=== PATIENT | female | born 1950 | race Caucasian/White ===

== ENCOUNTER 2016-07-04 14:51 | Emergency (ER) ==
[2016-07-04 14:59] VITALS: BP 161/88; TEMP 98.9; BMI 32.5
[2016-07-04] MEDS ORDERED: SODIUM CHLORIDE 1,000 ML IV STA (15:39)
[2016-07-04 15:54] LABS: BASOPHILS # (AUTO) 0.1 K/uL (0-0.2); BASOPHILS % (AUTO) 0.6 % (0.0-3.0); EOSINOPHILS # (AUTO) 0.1 K/ul (0.0-0.7); EOSINOPHILS % (AUTO) 0.8 % (0.0-7.0); HEMATOCRIT 44.5 % (37.0-47.0); HEMOGLOBIN 14.7 g/dl (12.0-16.0); IMMATURE GRANULOCYTE % (AUTO) 0.3 % (0.0-5.0); LYMPHOCYTES # (AUTO) 1.4 K/uL (0.60-3.4); LYMPHOCYTES % (AUTO) 13.5 (10.0-50.0); MEAN CORPUSCULAR HEMOGLOBIN 30.1 pg (27.0-31.0); MEAN CORPUSCULAR VOLUME 91.2 fl (81.0-99.0); MONOCYTES # (AUTO) 0.7 K/uL (0.4-2.0); MONOCYTES % (AUTO) 7.1 (0-10); NEUTROPHILS # (AUTO) 7.8 K/ul (2.0-6.9); NEUTROPHILS % (AUTO) 77.7; PLATELET COUNT 256 10^3/uL (140-440); RED BLOOD COUNT 4.88 10^6/ul (4.20-5.40); WHITE BLOOD COUNT 10.01 K/ul (4.6-10.2)
[2016-07-04 16:05] LABS: H. PYLORI ANTIBODY NEGATIVE (NEGATIVE); H.PYLORI INTERNAL QC INTERNAL QC VALID
[2016-07-04 16:09] LABS: BILIRUBIN,URINE Negative (NEGATIVE); KETONES,URINE 2+ (NEGATIVE); LEUKOCYTE ESTERASE ,URINE Negative (NEGATIVE); NITRITE,URINE Negative (NEGATIVE); PH,URINE 8.5 (5-9); PROTEIN,URINE Negative (NEGATIVE); URINE, BLOOD Negative (NEGATIVE)
[2016-07-04 16:12] LABS: ALBUMIN/GLOBULIN RATIO 1.11; ANION GAP 13.3; BILIRUBIN,TOTAL 0.72 mg/dL (0.00-1.20); BUN/CREATININE RATIO 17.24; CALCIUM 9.2 mg/dL (8.2-10.2); CREATININE 0.87 mg/dL (0.60-1.30); POTASSIUM 4.3 mmol/L (3.5-5.10); TOTAL PROTEIN 7.6 g/dL (5.8-8.1)
[2016-07-04 16:14] LABS: ADD URINE MICROSCOPIC NO
--- NOTE | 2016-07-04 16:34 | CT ---
EXAM: CT abdomen pelvis without contra HISTORY: Abdominal pain COMPARISON: None TECHNIQUE: CT abdomen pelvis performed without intravenous contrast. Coronal and sagittal reformat colleen images obtained FINDINGS: Minimal subsegmental atelectasis lung bases. Minimal left basilar patchy ground-glass de pendently. No acute abnormalities of the bones. There is degenerative change in the spine. Bilate ral pars defects L5 with 5 mm anterolisthesis of L5 on S1. Heart normal in size. Evaluation organ parenchyma limited without contrast. Liver diffusely decreased in attenuation. Gallbladder unremar kable. Pancreas unremarkable. Dilation of the common bile duct, poorly evaluated on noncontrast CT . Pancreas unremarkable. Spleen unremarkable. Adrenals unremarkable. No hydronephrosis or nephro lithiasis. No calculi visualized in the normal course of the ureters. Bladder only minimally diste nded and poorly evaluated, grossly unremarkable. Uterus unremarkable. Aorta normal in caliber. At herosclerosis. Ectasia infrarenal aorta measuring up to 2.3 cm. No lymphadenopathy or ascites. Sm all fat-containing umbilical hernia. Moderate hiatal hernia. No dilated loops small bowel. Append ix appears normal. There is colonic diverticulosis. There is inflammatory stranding surrounding di verticula in the sigmoid region. No focal drainable collection. Small fat-containing umbilical luis a ia. IMPRESSION: 1. Acute sigmoid diverticulitis. 2. Dilation of the common bile duct, poorly evaluated on noncontrast CT. Correlation with liver fu nction tests and right upper quadrant ultrasound recommended. MRCP may be beneficial for further ev aluation as subsequently indicated. 3. Moderate hiatal hernia. 4. Hepatic steatosis. 5. Atherosclerosis. Ectasia infrarenal abdominal aorta measuring up to 2.3 cm 6. Minimal left basilar ground-glass opacity may represent atelectasis and/or pneumonitis. 6. Bilateral pars defects L5 with 5 mm anterolisthesis of L5 on S1.
--- NOTE | 2016-07-04 16:44 | ED.PDOC ---
General ED Provider: Dr. CAROLINA HERNÁNDEZ JR Chief Complaint: Abdominal Pain Stated Complaint: pain to lower abd on left side this am--" a kidney stone"-- recent evaluation upper abd pain Time Seen by Physician: 15:30 Mode of Arrival: Walk-In Information Source: Patient Exam Limitations: No limitations Primary Care Provider: RAMONA GUZMAN Nursing and Triage Documentation Reviewed and Agree: No Review of Systems - Review Of Systems Constitutional: Reports: Malaise Eyes: Reports: No symptoms Ears, Nose, Mouth, Throat: Reports: No symptoms Respiratory: Reports: No symptoms Cardiac: Reports: No symptoms GI: Reports: Abdomen distended, Abdominal pain, Nausea : Reports: No symptoms Musculoskeletal: Reports: No symptoms Skin: Reports: No symptoms Neurological: Reports: No symptoms Endocrine: Reports: No symptoms Hematologic/Lymphatic: Reports: No symptoms All Other Systems: Other Past Medical History - Past Medical History Endocrine: Reports: DM 2 Cardiovascular: Reports: Hypertension Respiratory: Reports: None Hematological: Reports: None Gastrointestinal: Reports: None Genitourinary: Reports: None Neuro/Psych: Reports: None Musculoskeletal: Reports: None Cancer: Reports: None Last Menstrual Period: menopause Other Pertinent Past Medical History: seasonal allergies - Surgical History General Surgical History: Reports: Tonsillectomy, Other (breast cyst) - Family History Family History: Reports: Unknown - Social History Smoking Status: Former smoker Hx Substance Use: No Alcohol Screening: None Physical Exam - Physical Exam Appearance: Ill-appearing Ill-appearing: Mild Pain Distress: Mild Eyes: JUAN, EOMI, Conjunctiva clear ENT: Ears normal, Nose normal, Oropharynx normal Neck: Supple Respiratory: Airway patent, Breath sounds clear, Breath sounds equal, Respirations nonlabored GI/: Soft, No masses, Bowel sounds normal, Tender Musculoskeletal: Normal strength, ROM intact, No edema, No calf tenderness Skin: Warm, Dry, Normal color Neurological: Sensation intact, Motor intact, Reflexes intact, Cranial nerves intact, Alert, Oriented Psychiatric: Affect appropriate, Mood appropriate Critical Care Note - Critical Care Note Total Time (mins): 0 Course - Course Hematology/Chemistry: 07/04/16 15:50 07/04/16 15:50 Orders, Labs, Meds: Lab Review 07/04/16 07/04/16 15:25 15:50 WBC 10.01 RBC 4.88 Hgb 14.7 Hct 44.5 MCV 91.2 MCH 30.1 MCHC 33.0 RDW Coeff of Erendira 13.0 Plt Count 256 Immature Gran % (Auto) 0.3 Neut % (Auto) 77.7 Lymph % (Auto) 13.5 Cooper % (Auto) 7.1 Eos % (Auto) 0.8 Baso % (Auto) 0.6 Immature Gran # (Auto) 0.0 Neut # 7.8 H Lymph # 1.4 Cooper # 0.7 Eos # 0.1 Baso # 0.1 Sodium 141 Potassium 4.3 Chloride 106 Carbon Dioxide 26 Anion Gap 13.3 BUN 15 Creatinine 0.87 Estimated GFR (MDRD) 65.00 BUN/Creatinine Ratio 17.24 Glucose 115 Calcium 9.2 Total Bilirubin 0.72 AST 26 ALT 47 Alkaline Phosphatase 128 Total Protein 7.6 Albumin 4.0 Globulin 3.6 Albumin/Globulin Ratio 1.11 Amylase 34 Lipase 12 Procalcitonin < 0.05 Urine Color Yellow Urine Clarity Clear Urine pH 8.5 Ur Specific [place] 1.020 Urine Protein Negative Urine Glucose (UA) Negative Urine Ketones 2+ Urine Blood Negative Urine Nitrite Negative Urine Bilirubin Negative Urine Urobilinogen 0.2 Ur Leukocyte Esterase Negative H. pylori IgG Antibody Negative Orders Category Date Time Status ED IV/MEDIPORT/POWERPORT .ONCE EMERGENCY 07/04/16 15:35 Active AMYLASE Stat LAB 07/04/16 15:50 Completed CBC W/ AUTO DIFF Stat LAB 07/04/16 15:50 Completed COMPREHENSIVE METABOLIC PANEL Stat LAB 07/04/16 15:50 Completed H. PYLORI SCREEN Stat LAB 07/04/16 15:50 Completed LIPASE Stat LAB 07/04/16 15:50 Completed PROCALCITONIN Stat LAB 07/04/16 15:50 Completed URINALYSIS C & S IF INDICATED Stat LAB 07/04/16 15:25 Completed 0.9 % Sodium Chloride [Saline Flush] MEDS 07/04/16 15:35 Discontinued 1 syr IVF PRN PRN 0.9 % Sodium Chloride [Saline Flush] MEDS 07/04/16 15:39 Discontinued 1 syr IVF PRN PRN Sodium Chloride 0.9% [Sodium Chloride] 1,000 ml MEDS 07/04/16 15:39 Discontinued IV 125 mls/hr CT ABDOMEN/PELVIS WO CONTRAST Stat RADS 07/04/16 15:35 Completed Medications Discontinued Medications Generic Name Dose Route Start Last Admin Trade Name Freq PRN Reason Stop Dose Admin Sodium Chloride 1,000 mls @ 125 mls/hr 07/04/16 15:39 07/04/16 16:22 Sodium Chloride IV 07/04/16 23:38 125 mls/hr .Q8H STA Administration Sodium Chloride 1 syr 07/04/16 15:35 07/04/16 16:21 Saline Flush IVF 1 syr PRN PRN Administration To flush IV Sodium Chloride 1 syr 07/04/16 15:39 Saline Flush IVF PRN PRN To flush IV Vital Signs: Temp Pulse Resp BP Pulse Ox 07/04/16 14:51 98.9 F 93 H 20 161/88 H 95 Departure - Departure Time of Disposition: 16:46 Disposition: HOME SELF-CARE Discharge Problem: Diverticulitis large intestine Instructions: Diverticulitis (ED), Diverticulitis Diet (ED) Condition: Fair Pt referred to PMD for follow-up: Yes Additional Instructions: [place] for pain flagyl antibiotic for infection return if fever over 101.0 if pain not controlled recheck PMD 1-2 weeks sooner if not resolved Prescriptions: Hydrocodone Bit/Acetaminophen [[place] 5-325] 1 - 2 tab PO Q6HR PRN #12 tablet PRN Reason: pain Metronidazole [Flagyl] 500 mg PO TID #21 tablet Promethazine HCl [Phenergan Tab] 25 mg PO QID PRN #12 tablet PRN Reason: Nausea / Vomiting Allergies/Adverse Reactions: Allergies codeine Adverse Reaction (Verified 07/04/16 15:01) propoxyphene [From Darvon] Adverse Reaction (Verified 07/04/16 15:01) pseudoephedrine [From Sudafed] Adverse Reaction (Verified 07/04/16 15:01) Sulfa (Sulfonamide Antibiotics) Adverse Reaction (Verified 07/04/16 15:01) Home Medications: Ambulatory Orders Furosemide 10 mg PO DAILY 07/04/16 Glipizide [Glucotrol] 10 mg PO DAILY 07/04/16 Hydrocodone Bit/Acetaminophen [[place] 5-325] 1 - 2 tab PO Q6HR PRN #12 tablet Losartan Potassium 100 mg PO DAILY 07/04/16 Metronidazole [Flagyl] 500 mg PO TID #21 tablet 07/04/16 Promethazine HCl [Phenergan Tab] 25 mg PO QID PRN #12 tablet 07/04/16
== END 2016-07-04 17:53 | disposition home or self-care (01) ==
LOC: ED 14:51
DX: K57.32 Diverticulitis of large intestine without perforation or abscess without bleeding (principal); E11.9 Type 2 diabetes mellitus without complications; I10 Essential (primary) hypertension; Z79.899 Other long term (current) drug therapy
CPT/HCPCS: 36415; 80053; 81001; 82150; 83690; 84145; 85025; 86677; 96360; 96361; 99283